=== PATIENT | male | born 1945 | race Two or more races ===

== ENCOUNTER 2017-07-28 10:13 | Day surgery (SDC) | payer OTHER ==
[2017-07-28 11:52] VITALS: BMI 30.9
[2017-07-28] MEDS ORDERED: PROPOFOL 20 ML ONE ×2 (13:17)
[2017-07-28] MEDS ORDERED: KETOROLAC TROMETHAMINE 30 MG/1 ML VIAL ONE (14:01)
--- NOTE | 2017-07-28 14:14 | OP ---
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
[2017-07-28] MEDS ORDERED: ONDANSETRON 4 MG/2 ML VIAL IVPUSH PRN (14:19)
[2017-07-28] MEDS ORDERED: oxyCODONE HCL 5 MG TABLET PO PRN (14:19)
[2017-07-28] MEDS ORDERED: LACTATED RINGERS SOLUTION 1,000 ML IV SCH (14:30)
[2017-07-28 15:43] VITALS: TEMP 98.2
[2017-07-28 16:48] VITALS: BP 141/76; PULSE 69
--- NOTE | 2017-07-28 22:13 | OP ---
DATE OF OPERATION: 07/28/2017 PREOPERATIVE DIAGNOSIS: Urethral stricture. POSTOPERATIVE DIAGNOSES: Urethral stricture and bladder neck contracture. PROCEDURE: Cystoscopy, optical urethrotomy, and transurethral incision of bladder neck and prostate. ATTENDING: Prudencio Goodwin MD ANESTHESIA: General. DESCRIPTION OF OPERATION: The patient was brought in the operating room, placed in supine position on the operating room table. General anesthesia was administered as was preoperative antibiotics. Patient was then placed in dorsal lithotomy position and prepped and draped in the usual sterile manner. Cystoscopy was performed, and high-grade bulbous urethral stricture was noted. An optical urethrotome was utilized, and an urethrotomy was made at the 12 o'clock position. This relaxed incision allowed entry into the prostatic fossa. A high-grade bladder neck contracture was then noted. The bladder neck and prostate were incised at the 6 o'clock position. The incision extended from the bladder neck to the verumontanum. This relaxed incision allowed opening of the prostate and bladder neck. With this accomplished, the bladder was entered. No evidence of stones or neoplasm within the bladder was noted. Patient tolerated the procedure very well. No complications were noted. A 20-Yi Silastic catheter was then left in place. No complications were noted. The patient tolerated the procedure very well. The disposition of the patient was to the recovery room. Marcia [id number]
== END 2017-07-28 16:30 | disposition home or self-care (01) ==
LOC: JOR 10:13 → JASU-SURG 10:13
PROVIDERS: ATTEND Urology
PROC: 0TND8ZZ Release Urethra, Via Natural or Artificial Opening Endoscopic (ICD-10-PCS; principal; 2017-07-28 11:30)
DX: N35.9 Urethral stricture, unspecified (principal); N32.0 Bladder-neck obstruction
CPT/HCPCS: 94760

== ENCOUNTER 2017-07-30 16:02 | Emergency (ER) | payer OTHER ==
[2017-07-30 16:15] VITALS: BP 165/59; PULSE 66; TEMP 98.1; BMI 29.0
--- NOTE | 2017-07-30 16:51 | PDOC ---
Attending Attestation - HPI HPI: 07/30/17 17:04 The patient is a 72 year old male with a significant PMH of BPH (s/p urinary catheter), Celiac disease, anemia, NH, and cirrhosis of liver who presents to the emergency department for evaluation of catheter placement. The patient reports noting urine has been leaking onto his pants recently. He reports urine is still able to reach the catheter bag but believes his urine is leaking from the the catheter insertion site. The patient also notes some associated suprapubic discomfort. He denies dysuria or hematuria. He denies back pain. He denies weakness or dizziness. Allergies: NKA PCP: Dr. Monroe <Luisito Borjas - Last Filed: 07/30/17 17:07> - Resident Resident Name: Kraig Pillai - ED Attending Attestation I have performed the following: I have examined & evaluated the patient, The case was reviewed & discussed with the resident, I agree w/resident's findings & plan, Exceptions are as noted - Physicial Exam PE: GENERAL: Awake, alert, and fully oriented, in no acute distress HEAD: No signs of trauma EYES: PERRLA, EOMI, sclera anicteric, conjunctiva clear ENT: Auricles normal inspection, hearing grossly normal, nares patent, oropharynx clear without exudates. Moist mucosa NECK: Normal ROM, supple, no lymphadenopathy, JVD, or masses LUNGS: Breath sounds equal, clear to auscultation bilaterally. No wheezes, and no crackles HEART: Regular rate and rhythm, normal S1 and S2, no murmurs, rubs or gallops ABDOMEN: Soft, nontender, normoactive bowel sounds. No guarding, no rebound. No masses EXTREMITIES: Normal range of motion, no edema. No clubbing or cyanosis. No cords, erythema, or tenderness NEUROLOGICAL: Cranial nerves II through XII grossly intact. Normal speech, normal gait SKIN: Warm, Dry, normal turgor, no rashes or lesions noted. : Moser catheter in place, no active leakage at present. +Leg bag with yellow urine in place. - Medical Decision Making Pt with slight leakage of urine, ongoing since placement of catheter 2 days ago. Noted to have small wet spot on pants. No bladder distension, urine draining freely into moser bag. Will not intervene as the catheter is draining, and will avoid any trauma to the area in light of recent procedure. Will d/w Dr. Dmitriy Goodwin. <Noemi Ferreira - Last Filed: 07/30/17 17:55>
--- NOTE | 2017-07-30 17:10 | PDOC ---
History of Present Illness - General Chief Complaint: Urinary Catheter Problem Stated Complaint: CATHETER PROBLEM Time Seen by Provider: 07/30/17 16:37 - History of Present Illness Initial Comments: 07/30/17 17:01 The patient is a 72 year old male with a history of BPH who presents for evaluation of a urinary catheter issue. The patient had a urethral stricture incision by Dr. Dowell 2 days ago and since then has been experiencing leaking around the urinary catheter prompting his presentation to the ED for evaluation. He also reports some mild suprapubic discomfort, but otherwise denies fevers, chills, SOB, chest pain, nausea, vomiting, abdominal pain, or changes with bowel movements. Past History - Past Medical History Allergies/Adverse Reactions: Allergies Allergy/AdvReac Type Severity Reaction Status Date / Time No Known Allergies Allergy Verified 07/30/17 16:14 Home Medications: Ambulatory Orders Oxybutynin Chloride [Oxybutynin Chloride ER] 1 tab PO DAILY 11/24/13 Pnv/Iron,Carb/Om-3/FA/Fat 1 [Multivitamin with Minerals Cap] 1 cap PO DAILY 07/09 Albuterol Sulfate Inhaler - [Ventolin Hfa Inhaler -] 1 - 2 inh PO Q4H PRN Allopurinol [Zyloprim -] 100 mg PO DAILY 07/28/17 Aspirin [ASA -] 81 mg PO DAILY 07/28/17 Famotidine [Pepcid -] 40 mg PO DAILY 07/28/17 Lisinopril/Hydrochlorothiazide [Lisinopril-Hctz 20-12.5 mg Tab] 1 each PO DAILY 07/28/17 Tamsulosin HCl 0.4 mg PO HS 07/28/17 Oxybutynin Chloride [Ditropan -] 10 mg PO DAILY #5 tablet 07/30/17 Anemia: Yes Asthma: No Cancer: No Cardiac Disorders: Yes (history of myocardial infarction) CVA: No COPD: No CHF: No DVT: No Dementia: No Diabetes: No GI Disorders: Yes (GASTRITIS;DUODENITIS; CELIAC DS; ADENOMATOUS POLYP) HTN: Yes Hypercholesterolemia: No Liver Disease: Yes (CIRRHOSIS OF LIVER) Seizures: No Thyroid Disease: No - Surgical History Cardiac Surgery: No Lung Surgery: No Neurologic Surgery: No Orthopedic Surgery: No - Suicide/Smoking/Psychosocial Hx Smoking Status: No Smoking History: Current every day smoker Have you smoked in the past 12 months: Yes Number of Cigarettes Smoked Daily: 20 If you are a former smoker, when did you quit?: several years ago Cigars Per Day: 3 Information on smoking cessation initiated: Yes 'Breaking Loose' booklet given: 07/30/17 Hx Alcohol Use: No Drug/Substance Use Hx: No Substance Use Type: Alcohol Hx Substance Use Treatment: No Review of Systems - Review of Systems Comments:: 07/30/17 17:11 Constitutional: No fevers, chills, fatigue, malaise HEENT: No Rhinorrhea, nasal congestion, visual changes Cardiovascular: No chest pain, syncope, palpitations, lightheadedness Respiratory: No Cough, SOB, Hemoptysis, Gastrointestinal: No Abdominal pain, Nausea, Vomiting, Constipation, Diarrhea, Melena Genitourinary: Urinary Catheter Leakage. No Dysuria, Frequency, Urgency, Hesitancy, Hematuria, Flank pain Musculoskeletal: No Myalgia, arthralgia Skin: No rashes, itching, bruising, pallor Neurologic: No Headache, Dizziness, Numbness, Weakness, or Tingling Psychiatric: No Hallucinations. No SI or HI *Physical Exam - Vital Signs Last Vital Signs Temp Pulse Resp BP Pulse Ox 98.1 F 66 19 165/59 99 07/30/17 16:13 07/30/17 16:13 07/30/17 16:13 07/30/17 16:13 07/30/17 16:13 - Physical Exam Comments: 07/30/17 17:12 General Appearance: Nourished. No Apparent Distress HEENT: EOMI, BENITA. No Pharyngeal Erythema, Tonsillar Exudate, Tonsillar Erythema Neck: No Cervical Lymphadenopathy Respiratory/Chest: Lungs Clear, Normal Breath Sounds. No Crackles, Rales, Rhonchi, Wheezing Cardiovascular: Regular Rhythm, Regular Rate. No Murmur, Gallops, Rubs Gastrointestinal/Abdominal: Normal Bowel Sounds, Soft. No Guarding, Rebound, Tenderness Genital Exam: Urinary Catheter in place draining normal appearing urine. Minimal amount of urine on the patient's pants. No discharge noted on exam. Musculoskeletal: No CVA Tenderness Extremity: Normal Capillary Refill Integumentary: Normal Color, Dry, Warm Neurologic: Fully Oriented, Alert, Normal Mood/Affect, Normal Response, Medical Decision Making - Medical Decision Making 07/30/17 17:17 The patient is a 72 year old male with a history of BPH who presents for evaluation of a urinary catheter issue. The patient appears well on exam with normal appearing urine withing the urinary catheter bag. We discussed the case with Dr. Dowell who informed us that leakage is normal and is to be expected following the procedure and we may prescribe Ditropan 10mg Daily until the patient follow's up in the office to have the catheter removed in 5 days. We are comfortable discharging the patient home at this time with urology follow up. We discussed the plan with the patient who voiced understanding. *DC/Admit/Observation/Transfer Diagnosis at time of Disposition: Urinary catheter in place - Discharge Dispostion Disposition: HOME Condition at time of disposition: Good Admit: No - Prescriptions Prescriptions: Oxybutynin Chloride [Ditropan -] 10 mg PO DAILY #5 tablet - Referrals Referrals: Nithya Monroe MD [Primary Care Provider] - Prudencio Dowell MD [Staff Physician] - - Patient Instructions Printed Discharge Instructions: How to Care for Your Senior Catheter -- Male Additional Instructions: Please return to the ER if you experience concerning or worsening symptoms including worsening fevers, chills, or abdominal pain. The leakage around your urinary catheter is to be expected following your procedure. We have sent a prescription to your pharmacy that you should take 10mg once a day for the next 5 days until your follow up appointment to help manage your symptoms. Please make sure you keep your follow up appointment with your urologist Dr. Dowell in 5 days. - Post Discharge Activity
== END 2017-07-30 18:04 | disposition home or self-care (01) ==
LOC: JER 16:02
DX: Z46.6 Encounter for fitting and adjustment of urinary device (principal); N40.0 Benign prostatic hyperplasia without lower urinary tract symptoms
CPT/HCPCS: 99282-25

== ENCOUNTER 2020-11-15 09:08 | Observation (INO) | payer OTHER ==
[2020-11-15 09:30] VITALS: BMI 27.9
[2020-11-15] MEDS ORDERED: SODIUM CHLORIDE 500 ML IV STA (09:55)
[2020-11-15 10:59] LABS: BASO % 0.2 % (0-2.0); EOS % 2.5 % (0-4.5); HEMATOCRIT 31.1 % (35.4-49); HEMOGLOBIN 10.4 GM/dL (11.7-16.9); LYMPH % 17.6 % (8-40); MCHC 33.5 g/dl (32.0-35.9); MEAN CELL VOLUME 86.4 fl (80-96); MEAN PLT VOLUME 8.7 fl (7.5-11.1); MONO % 10.5 % (3.8-10.2); NEUT % 69.2 % (42.8-82.8); PLATELET COUNT 170 10^3/uL (134-434); RDW 13.3 % (11.9-15.9); WHITE BLOOD COUNT 6.6 K/mm3 (4.0-10.0)
[2020-11-15 11:06] LABS: INR 1.65 (0.83-1.09)
[2020-11-15 11:23] LABS: ALBUMIN 3.5 g/dl (3.4-5.0); BLOOD UREA NITROGEN 19.3 mg/dL (7-18); CALCIUM 8.8 mg/dL (8.5-10.1)
[2020-11-15 11:24] LABS: PH,URINE 5.5 (5.0-8.0); URINE APPEARANCE CLEAR; URINE BILIRUBIN NEGATIVE (NEGATIVE); URINE COLOR YELLOW; URINE GLUCOSE (UA) NEGATIVE (NEGATIVE); URINE KETONE NEGATIVE (NEGATIVE); URINE LEUK ESTERASE NEGATIVE (NEGATIVE); URINE NITRITE NEGATIVE (NEGATIVE); URINE PROTEIN NEGATIVE (NEGATIVE); URINE UROBILINOGEN 0.2 mg/dL (0.2-1.0)
[2020-11-15 11:26] LABS: CREATININE 1.1 mg/dL (0.55-1.3)
[2020-11-15 11:28] LABS: TOT PROT 7.6 g/dl (6.4-8.2)
[2020-11-15 11:33] LABS: BILIRUBIN,TOTAL 0.4 mg/dL (0.2-1)
[2020-11-15] MEDS: DEXTROSE 5%-0.45% SALINE 1,000 ML IV SCH (20:24)
[2020-11-16 09:10] LABS: BASO % 0.3 % (0-2.0); EOS % 7.3 % (0-4.5); HEMATOCRIT 29.8 % (35.4-49); HEMOGLOBIN 10.1 GM/dL (11.7-16.9); LYMPH % 26.7 % (8-40); MCH 29.2 pg (25.7-33.7); MEAN PLT VOLUME 8.8 fl (7.5-11.1); MONO % 11.4 % (3.8-10.2); NEUT % 54.3 % (42.8-82.8); PLATELET COUNT 172 10^3/uL (134-434); RBC 3.47 M/mm3 (4.00-5.60); RDW 13.2 % (11.9-15.9); WHITE BLOOD COUNT 4.8 K/mm3 (4.0-10.0)
[2020-11-16 09:29] LABS: CALCIUM 8.3 mg/dL (8.5-10.1)
[2020-11-16 09:30] LABS: ALBUMIN 3.2 g/dl (3.4-5.0); BLOOD UREA NITROGEN 13.3 mg/dL (7-18)
[2020-11-16 09:33] LABS: CREATININE 0.9 mg/dL (0.55-1.3)
[2020-11-16 09:35] LABS: BILIRUBIN,TOTAL 0.6 mg/dL (0.2-1); TOT PROT 6.8 g/dl (6.4-8.2)
[2020-11-16] MEDS ORDERED: PATIENT'S OWN MEDICATION (NON-FORMULARY) (Losartan/Hydrochlorothiazide [Losartan-Hctz 100- PO SCH (10:00)
[2020-11-16] MEDS: LOSARTAN POTASSIUM 50 MG TABLET PO SCH (11:00)
[2020-11-16] MEDS: GABAPENTIN 100 MG CAPSULE PO SCH ×2 (11:00→21:04)
[2020-11-16] MEDS: FAMOTIDINE 20 MG TABLET PO SCH (11:00)
[2020-11-16] MEDS: ALLOPURINOL 100 MG TABLET (FP) PO SCH (11:01)
[2020-11-16] MEDS: HYDROCHLOROTHIAZIDE 12.5 MG CAPSULE (FP) PO SCH (11:01)
[2020-11-16] MEDS: DEXTROSE 5%-0.45% SALINE 1,000 ML IV SCH (14:39)
[2020-11-16] MEDS: metroNIDAZOLE 250 MG TABLET PO SCH ×2 (14:39→21:04)
[2020-11-16] MEDS: LIPASE/PROTEASE/AMYLASE 36,000 UNIT CAPSULE PO SCH (17:41)
[2020-11-16] MEDS ORDERED: PT OWN MED DRAWER 7, Y5N ONE (19:11)
[2020-11-16] MEDS ORDERED: ROSUVASTATIN CA 5 MG TABLET (FP) PO SCH (22:00)
[2020-11-16] MEDS ORDERED: TAMSULOSIN HCL 0.4 MG CAP PO SCH (22:00)
[2020-11-17] MEDS: metroNIDAZOLE 250 MG TABLET PO SCH ×2 (06:11→14:48)
[2020-11-17] MEDS ORDERED: PT OWN MED DRAWER 7, Y5N ONE (09:51)
[2020-11-17] MEDS: ALLOPURINOL 100 MG TABLET (FP) PO SCH (10:29)
[2020-11-17] MEDS: FAMOTIDINE 20 MG TABLET PO SCH (10:30)
[2020-11-17] MEDS: GABAPENTIN 100 MG CAPSULE PO SCH (10:30)
[2020-11-17] MEDS: HYDROCHLOROTHIAZIDE 12.5 MG CAPSULE (FP) PO SCH (10:30)
[2020-11-17] MEDS: LIPASE/PROTEASE/AMYLASE 36,000 UNIT CAPSULE PO SCH ×2 (10:30→12:19)
[2020-11-17] MEDS: LOSARTAN POTASSIUM 50 MG TABLET PO SCH (10:30)
[2020-11-17] MEDS: DEXTROSE 5%-0.45% SALINE 1,000 ML IV SCH (10:33)
[2020-11-17 17:05] VITALS: BP 103/56; PULSE 75; TEMP 98.7
== END 2020-11-17 15:38 | disposition home or self-care (01) ==
LOC: JER 09:08 → INTOOBSV 15:03 → JERBED 15:03 → J5S 23:07
PROVIDERS: ADMIT Family Medicine; ATTEND Family Medicine
PROC: 3E0337Z Introduction of Electrolytic and Water Balance Substance into Peripheral Vein, Percutaneous Approach (ICD-10-PCS; principal; 2020-11-15)
DX: K62.5 Hemorrhage of anus and rectum (principal); R10.9 Unspecified abdominal pain; D64.9 Anemia, unspecified; I10 Essential (primary) hypertension; I25.2 Old myocardial infarction; N40.0 Benign prostatic hyperplasia without lower urinary tract symptoms; K90.0 Celiac disease; K74.60 Unspecified cirrhosis of liver; F17.210 Nicotine dependence, cigarettes, uncomplicated; Z79.82 Long term (current) use of aspirin
CPT/HCPCS: 36415; 71045-TC-FY; 74019-TC-FY; 74177-TC; 80053; 81003; 82272; 83690; 85025; 85610; 86850; 86900; 86901; 93005; 93010; 96360; 99285-25; C9803; G0378; Q9967; U0003; U0005

== ENCOUNTER 2020-11-18 12:43 | Emergency (ER) | payer OTHER ==
[2020-11-18 12:57] VITALS: BP 152/71; PULSE 75; TEMP 98.1; BMI 29.0
[2020-11-18 14:52] LABS: BASO % 0.3 % (0-2.0); EOS % 3.4 % (0-4.5); HEMATOCRIT 31.9 % (35.4-49); HEMOGLOBIN 10.7 GM/dL (11.7-16.9); LYMPH % 27.6 % (8-40); MCH 29.1 pg (25.7-33.7); MCHC 33.7 g/dl (32.0-35.9); MEAN CELL VOLUME 86.2 fl (80-96); MEAN PLT VOLUME 8.6 fl (7.5-11.1); MONO % 10.9 % (3.8-10.2); NEUT % 57.8 % (42.8-82.8); PLATELET COUNT 198 10^3/uL (134-434); RDW 13.6 % (11.9-15.9); WHITE BLOOD COUNT 6.3 K/mm3 (4.0-10.0)
[2020-11-18 15:00] LABS: INR 1.47 (0.83-1.09); PROTHROMBIN TIME (PATIENT) 17.6 SEC (9.7-13.0)
[2020-11-18 15:03] LABS: ACTIVATED PTT 31.8 SECONDS (25.2-36.5); BLOOD UREA NITROGEN 20.1 mg/dL (7-18); CALCIUM 8.7 mg/dL (8.5-10.1)
[2020-11-18 15:04] LABS: ALBUMIN 3.5 g/dl (3.4-5.0)
[2020-11-18 15:07] LABS: CREATININE 1.2 mg/dL (0.55-1.3)
[2020-11-18 15:08] LABS: BILIRUBIN,TOTAL 0.4 mg/dL (0.2-1); TOT PROT 7.4 g/dl (6.4-8.2)
== END 2020-11-18 15:26 | disposition home or self-care (01) ==
LOC: JER 12:43
DX: K62.5 Hemorrhage of anus and rectum (principal)
CPT/HCPCS: 36415; 80053; 82272; 85025; 85610; 85730; 86850; 86900; 86901; 99283-25

== ENCOUNTER 2022-03-08 13:53 | Observation (INO) | payer OTHER ==
[2022-03-08 14:10] VITALS: BMI 25.8
[2022-03-08 14:36] LABS: BASO % 0.7 % (0-2.0); EOS % 6.1 % (0-4.5); HEMATOCRIT 33.8 % (35.4-49); HEMOGLOBIN 11.3 GM/dL (11.7-16.9); LYMPH % 28.9 % (8-40); MCHC 33.5 g/dl (32.0-35.9); MEAN CELL VOLUME 89.7 fl (80-96); MEAN PLT VOLUME 8.2 fl (7.5-11.1); MONO % 10.2 % (3.8-10.2); NEUT % 54.1 % (42.8-82.8); PLATELET COUNT 188 10^3/uL (134-434); RBC 3.77 M/mm3 (4.00-5.60); RDW 12.7 % (11.9-15.9); WHITE BLOOD COUNT 5.4 K/mm3 (4.0-10.0)
[2022-03-08 14:43] LABS: INR 1.11 (0.83-1.09); PROTHROMBIN TIME (PATIENT) 12.8 SEC (9.7-13.0)
[2022-03-08 14:45] LABS: ACTIVATED PTT 34.3 SECONDS (25.2-36.5)
[2022-03-08 15:13] LABS: ALBUMIN 3.7 g/dl (3.4-5.0); BILIRUBIN,TOTAL 0.4 mg/dL (0.2-1); BLOOD UREA NITROGEN 20.1 mg/dL (7-18); CALCIUM 9.1 mg/dL (8.5-10.1); CREATININE 0.9 mg/dL (0.55-1.3); TOT PROT 7.8 g/dl (6.4-8.2)
[2022-03-08] MEDS ORDERED: ASPIRIN 81 MG CHEWABLE TABLETS PO ONE (15:55)
[2022-03-08] MEDS ORDERED: ASPIRIN 81 MG CHEWABLE TABLETS ONE ×2 (16:33→16:34)
[2022-03-08] MEDS ORDERED: ALBUTEROL SO4 HFA INHALER IH PRN (21:29)
[2022-03-08] MEDS: TAMSULOSIN HCL 0.4 MG CAP PO SCH (22:10)
[2022-03-09] MEDS: LOSARTAN POTASSIUM 50 MG TABLET PO SCH (09:46)
[2022-03-09] MEDS: HYDROCHLOROTHIAZIDE 12.5 MG CAPSULE (FP) PO SCH (09:47)
[2022-03-09] MEDS: amLODIPine BESYLATE 5 MG TABLET (FP) PO SCH (09:47)
[2022-03-09] MEDS: FAMOTIDINE 40 MG TABLET PO SCH (10:16)
[2022-03-09 11:56] LABS: PH,URINE 6.5 (5.0-8.0); URINE APPEARANCE CLEAR; URINE BILIRUBIN NEGATIVE (NEGATIVE); URINE COLOR YELLOW; URINE GLUCOSE (UA) NEGATIVE (NEGATIVE); URINE KETONE NEGATIVE (NEGATIVE); URINE LEUK ESTERASE NEGATIVE (NEGATIVE); URINE NITRITE NEGATIVE (NEGATIVE); URINE PROTEIN NEGATIVE (NEGATIVE); URINE UROBILINOGEN 0.2 mg/dL (0.2-1.0)
[2022-03-09 15:09] LABS: BASO % 0.8 % (0-2.0); EOS % 7.1 % (0-4.5); HEMATOCRIT 31.4 % (35.4-49); HEMOGLOBIN 10.4 GM/dL (11.7-16.9); LYMPH % 34.5 % (8-40); MCH 29.7 pg (25.7-33.7); MCHC 33.2 g/dl (32.0-35.9); MEAN CELL VOLUME 89.3 fl (80-96); MEAN PLT VOLUME 8.9 fl (7.5-11.1); MONO % 8.9 % (3.8-10.2); NEUT % 48.7 % (42.8-82.8); PLATELET COUNT 199 10^3/uL (134-434); RBC 3.52 M/mm3 (4.00-5.60); RDW 12.7 % (11.9-15.9); WHITE BLOOD COUNT 5.4 K/mm3 (4.0-10.0)
[2022-03-09] MEDS: TAMSULOSIN HCL 0.4 MG CAP PO SCH (21:23)
[2022-03-09] MEDS: ROSUVASTATIN CA 5 MG TABLET PO SCH (21:31)
[2022-03-10] MEDS: HYDROCHLOROTHIAZIDE 12.5 MG CAPSULE (FP) PO SCH (09:14)
[2022-03-10] MEDS: LOSARTAN POTASSIUM 50 MG TABLET PO SCH (09:14)
[2022-03-10] MEDS: amLODIPine BESYLATE 5 MG TABLET (FP) PO SCH (09:14)
[2022-03-10] MEDS: FAMOTIDINE 40 MG TABLET PO SCH (10:24)
[2022-03-10] MEDS ORDERED: ACETAMINOPHEN 325 MG TABLET (FP) PO PRN (11:46)
[2022-03-10] MEDS: ROSUVASTATIN CA 5 MG TABLET PO SCH (22:39)
[2022-03-10] MEDS: TAMSULOSIN HCL 0.4 MG CAP PO SCH (22:40)
[2022-03-11 07:20] LABS: BASO % 0.7 % (0-2.0); EOS % 8.8 % (0-4.5); HEMATOCRIT 31.2 % (35.4-49); HEMOGLOBIN 10.5 GM/dL (11.7-16.9); LYMPH % 32.7 % (8-40); MCH 29.9 pg (25.7-33.7); MCHC 33.7 g/dl (32.0-35.9); MEAN CELL VOLUME 88.8 fl (80-96); MEAN PLT VOLUME 8.9 fl (7.5-11.1); MONO % 9.2 % (3.8-10.2); NEUT % 48.6 % (42.8-82.8); PLATELET COUNT 193 10^3/uL (134-434); RBC 3.52 M/mm3 (4.00-5.60); RDW 12.4 % (11.9-15.9); WHITE BLOOD COUNT 5.6 K/mm3 (4.0-10.0)
[2022-03-11 07:39] LABS: CALCIUM 8.6 mg/dL (8.5-10.1)
[2022-03-11 07:40] LABS: BLOOD UREA NITROGEN 33.8 mg/dL (7-18)
[2022-03-11 07:43] LABS: CREATININE 1.1 mg/dL (0.55-1.3)
[2022-03-11] MEDS: amLODIPine BESYLATE 5 MG TABLET (FP) PO SCH ×2 (08:43→12:55)
[2022-03-11] MEDS: LOSARTAN POTASSIUM 50 MG TABLET PO SCH ×2 (08:43→12:55)
[2022-03-11] MEDS ORDERED: REGADENOSON 0.4 MG/5 ML PRE-FILLED SYRINGE IVPUSH ONE ×2 (09:27→09:30)
[2022-03-11] MEDS: FAMOTIDINE 40 MG TABLET PO SCH (12:56)
[2022-03-11] MEDS: HYDROCHLOROTHIAZIDE 12.5 MG CAPSULE (FP) PO SCH (12:57)
[2022-03-11 14:20] VITALS: BP 127/52; PULSE 63; RESP 24; TEMP 98.2
== END 2022-03-11 18:25 | disposition home or self-care (01) ==
LOC: JER 13:53 → JERBED 16:10 → J4W 19:40
PROVIDERS: ADMIT Family Medicine; ATTEND Family Medicine
PROC: 3E033GC Introduction of Other Therapeutic Substance into Peripheral Vein, Percutaneous Approach (ICD-10-PCS; principal; 2022-03-08)
DX: I25.10 Atherosclerotic heart disease of native coronary artery without angina pectoris (principal); D64.9 Anemia, unspecified; E78.5 Hyperlipidemia, unspecified; M54.50 Low back pain, unspecified; I11.9 Hypertensive heart disease without heart failure; I25.2 Old myocardial infarction; F17.210 Nicotine dependence, cigarettes, uncomplicated; I44.7 Left bundle-branch block, unspecified
CPT/HCPCS: 0241U-QW; 36415; 71045-TC-FY; 78452-TC; 80048; 80053; 81003; 82550; 82728; 83540; 83550; 84443; 84484; 85025; 85610; 85651; 85730; 86140; 87040; 87086; 93005; 93010; 93017; 93306-TC; 96374; 97116-GP; 97161-GP; 99285-25; A9502; C9803-CS; G0378; J2785; U0003; U0005

== ENCOUNTER 2022-03-19 14:23 | Emergency (ER) | payer OTHER ==
[2022-03-19 14:33] VITALS: BMI 28.3
[2022-03-19] MEDS ORDERED: ACETAMINOPHEN 1000 MG/100 ML BAG IVPB ONE (15:19)
[2022-03-19] MEDS ORDERED: ACETAMINOPHEN INJECTION 100 ML IVPB ONE (16:01)
[2022-03-19 16:45] LABS: BASO % 0.5 % (0-2.0); EOS % 5.4 % (0-4.5); HEMATOCRIT 31.9 % (35.4-49); HEMOGLOBIN 10.8 GM/dL (11.7-16.9); LYMPH % 30.5 % (8-40); MCH 30.1 pg (25.7-33.7); MCHC 33.8 g/dl (32.0-35.9); MEAN CELL VOLUME 89.1 fl (80-96); MEAN PLT VOLUME 8.2 fl (7.5-11.1); MONO % 8.9 % (3.8-10.2); NEUT % 54.7 % (42.8-82.8); PLATELET COUNT 243 10^3/uL (134-434); RBC 3.58 M/mm3 (4.00-5.60); RDW 12.5 % (11.9-15.9); WHITE BLOOD COUNT 5.5 K/mm3 (4.0-10.0)
[2022-03-19 17:41] LABS: ALBUMIN 3.7 g/dl (3.4-5.0); BILIRUBIN,TOTAL 0.4 mg/dL (0.2-1); BLOOD UREA NITROGEN 15.7 mg/dL (7-18); CALCIUM 9.3 mg/dL (8.5-10.1); TOT PROT 7.5 g/dl (6.4-8.2)
[2022-03-19 19:03] VITALS: BP 158/55; PULSE 58; RESP 18; TEMP 98
== END 2022-03-19 18:55 | disposition home or self-care (01) ==
LOC: JER 14:23
PROC: 3E033GC Introduction of Other Therapeutic Substance into Peripheral Vein, Percutaneous Approach (ICD-10-PCS; principal; 2022-03-19)
DX: M79.10 Myalgia, unspecified site (principal)
CPT/HCPCS: 0241U-QW; 36415; 71045-TC-FY; 80053; 82550; 84484; 85025; 93005; 93010; 99285-25

== ENCOUNTER 2023-06-23 04:54 | Day surgery (SDC) | payer OTHER ==
[2023-06-18 12:33] VITALS: BMI 22.1
[2023-06-23 11:00] VITALS: RESP 18
[2023-06-23 12:31] VITALS: TEMP 99
[2023-06-23 12:58] VITALS: BP 151/61; PULSE 56
== END 2023-06-23 13:15 | disposition home or self-care (01) ==
LOC: JASU-ENDO 04:54
PROVIDERS: ATTEND Internal Medicine Gastroenterology
PROC: 0DB98ZX Excision of Duodenum, Via Natural or Artificial Opening Endoscopic, Diagnostic (ICD-10-PCS; 2023-06-23)
PROC: 0DB78ZX Excision of Stomach, Pylorus, Via Natural or Artificial Opening Endoscopic, Diagnostic (ICD-10-PCS; 2023-06-23)
PROC: 0DB68ZX Excision of Stomach, Via Natural or Artificial Opening Endoscopic, Diagnostic (ICD-10-PCS; 2023-06-23)
PROC: 0DJD8ZZ Inspection of Lower Intestinal Tract, Via Natural or Artificial Opening Endoscopic (ICD-10-PCS; principal; 2023-06-23 10:15)
DX: K29.80 Duodenitis without bleeding (principal); K29.50 Unspecified chronic gastritis without bleeding; D50.9 Iron deficiency anemia, unspecified; I10 Essential (primary) hypertension; R63.4 Abnormal weight loss
CPT/HCPCS: 88305-TC; 88341-TC; 88342-TC

== ENCOUNTER 2023-09-23 04:43 | Day surgery (SDC) | payer OTHER ==
[2023-09-22 10:20] VITALS: BMI 22.1
[2023-09-23 11:08] VITALS: TEMP 97.8
[2023-09-23 11:45] VITALS: BP 161/54; PULSE 57; RESP 13
[2023-09-23 12:08] LABS: POTASSIUM 4.4 mmol/L (3.5-5.1)
[2023-09-23 12:10] LABS: CALCIUM 9.1 mg/dL (8.5-10.1)
[2023-09-23 12:11] LABS: ALBUMIN 3.5 g/dl (3.4-5.0)
[2023-09-23 12:15] LABS: TOT PROT 6.8 g/dl (6.4-8.2)
[2023-09-23 12:16] LABS: BILIRUBIN,TOTAL 0.4 mg/dL (0.2-1)
== END 2023-09-23 12:00 | disposition home or self-care (01) ==
LOC: JASU-ENDO 04:43
PROVIDERS: ATTEND Internal Medicine Gastroenterology
PROC: 0DBL8ZX Excision of Transverse Colon, Via Natural or Artificial Opening Endoscopic, Diagnostic (ICD-10-PCS; 2023-09-23)
PROC: 0DBN8ZX Excision of Sigmoid Colon, Via Natural or Artificial Opening Endoscopic, Diagnostic (ICD-10-PCS; 2023-09-23)
PROC: 0DBB8ZX Excision of Ileum, Via Natural or Artificial Opening Endoscopic, Diagnostic (ICD-10-PCS; 2023-09-23)
PROC: 0DBM8ZX Excision of Descending Colon, Via Natural or Artificial Opening Endoscopic, Diagnostic (ICD-10-PCS; 2023-09-23)
PROC: 0DBH8ZX Excision of Cecum, Via Natural or Artificial Opening Endoscopic, Diagnostic (ICD-10-PCS; 2023-09-23)
PROC: 0DBK8ZX Excision of Ascending Colon, Via Natural or Artificial Opening Endoscopic, Diagnostic (ICD-10-PCS; principal; 2023-09-23 10:30)
DX: K52.832 Lymphocytic colitis (principal); K64.8 Other hemorrhoids; K59.89 Other specified functional intestinal disorders
CPT/HCPCS: 36415; 80053; 88305-TC

== ENCOUNTER → 2024-04-06 | Day surgery (SDC) | payer OTHER ==
[2024-04-06 10:25] LABS: BASO % 0.7 % (0-2.0); EOS % 5.4 % (0-4.5); HEMATOCRIT 33.4 % (35.4-49); LYMPH % 26.4 % (8-40); MCH 29.3 pg (25.7-33.7); MCHC 32.9 g/dl (32.0-35.9); MEAN PLT VOLUME 8.8 fl (7.5-11.1); MONO % 6.9 % (3.8-10.2); NEUT % 60.6 % (42.8-82.8); PLATELET COUNT 185 10^3/uL (134-434); RBC 3.75 M/mm3 (4.00-5.60); RDW 13.1 % (11.9-15.9); WHITE BLOOD COUNT 5.1 K/mm3 (4.0-10.0)
[2024-04-06 10:30] LABS: PROTHROMBIN TIME (PATIENT) 11.5 SEC (9.7-13.0)
== END | disposition home or self-care (01) ==
LOC: JRADIR 09:36
PROVIDERS: ATTEND Internal Medicine Hematology & Oncology
PROC: 07BH3ZX Excision of Right Inguinal Lymphatic, Percutaneous Approach, Diagnostic (ICD-10-PCS; principal; 2024-04-06)
DX: R59.0 Localized enlarged lymph nodes (principal)
CPT/HCPCS: 36415; 38505; 76942-TC; 76998-TC; 85025; 85610; 88305-TC; 88342-TC

== ENCOUNTER 2024-09-28 10:02 | Emergency (ER) | payer OTHER ==
[2024-09-28 10:12] VITALS: BP 134/62; PULSE 68; RESP 16; TEMP 97.7; BMI 27.3
== END 2024-09-28 11:05 | disposition home or self-care (01) ==
LOC: JER 10:02 → JERFT 10:02 → JER 11:05
DX: R21 Rash and other nonspecific skin eruption (principal); L29.9 Pruritus, unspecified; L53.9 Erythematous condition, unspecified
CPT/HCPCS: 99283-25